=== PATIENT | male | born 1985 | race Caucasian/White ===

== ENCOUNTER → 2018-09-26 15:36 | Outpatient (CLI) | payer OTHER, SELFPAY | PROVIDERS: Visit Provider Student in an Organized Health Care Education/Training Program | DX: N46.01 Organic azoospermia (principal); Z02.82 Encounter for adoption services; N52.9 Male erectile dysfunction, unspecified; Z13.220 Encounter for screening for lipoid disorders ==

== ENCOUNTER → 2018-10-07 12:08 | Outpatient (CLI) | payer OTHER, SELFPAY ==
[2018-10-07 13:00] LABS: BUN Creatinine Ratio 27.5 (6-22); Blood Urea Nitrogen 22 mg/dL (9-20); Calcium 9.2 mg/dL (8.4-10.2); Carbon Dioxide 28 mmol/L (22-32); Chloride 104 mmol/L (98-107); Cholesterol 173 mg/dL (140-199); Estimated Glomerular Filt Rate > 60.0 mL/min (>60); Glucose 93 mg/dL (70-100); HDL Cholesterol 36 mg/dL (40-60); HEMOLYSIS < 15 (0-50); LDL Cholesterol Calculated 106 mg/dL (<100); Potassium 4.2 mmol/L (3.4-5.1); Sodium 140 mmol/L (137-145); Triglycerides 157 mg/dL (35-150)
[2018-10-07 13:44] LABS: Volume Semen 1.5 (1.0-5.0)
[2018-10-07 13:45] LABS: Liquefaction Semen YES (YES); Sperm Count 247 x10^6/mL (20-150); Sperm Morphology 85 %ABNORM (0-30); Sperm Motility 60% % Motile
[2018-10-07 14:54] LABS: Vitamin D 25 Hydroxy (D3) 22.3 ng/mL (30.0-100.0)
[2018-10-10 16:55] LABS: QuantiFERON TB NEGATIVE (Negative)
== END ==
PROVIDERS: PCP Student in an Organized Health Care Education/Training Program; Visit Provider Student in an Organized Health Care Education/Training Program
DX: Z02.82 Encounter for adoption services (principal); N52.9 Male erectile dysfunction, unspecified; N46.01 Organic azoospermia; N46.9 Male infertility, unspecified; Z13.220 Encounter for screening for lipoid disorders; E55.9 Vitamin D deficiency, unspecified
CPT/HCPCS: 36415; 80048; 80061; 82306; 86480; 89320

== ENCOUNTER 2023-10-29 19:06 | Emergency (ER) | payer OTHER, SELFPAY ==
[2023-10-29 19:29] VITALS: BP 132/77; PULSE 70; RESP 16; TEMP 36.3; O2SAT 97; BMI 31.7
--- NOTE | 2023-10-29 20:12 | PC.NURSE ---
Pt states that he was previously seen and treated with Augmentin at clinic, but pain and issues with vision have not improved.
--- NOTE | 2023-10-29 22:02 | ED.EYEPROB ---
HPI - Eye Problem General Chief complaint: Eye Problems Stated complaint: lt eye stye Time Seen by Provider: 10/29/23 22:00 Source: patient Mode of arrival: Ambulatory History of Present Illness HPI Narrative: Patient is a 37-year-old male who wears glasses presenting today with left eye stye. It has been ongoing for the last 6 days. He was seen and evaluated at walk-in clinic where he was given amoxicillin preseptal cellulitis. He reports that he is having increased pain in his eye. He has been using warm compresses but the pain seems to be getting worse. He denies any fever. Does not feel like the eye itself hurts it really feels like the out side. Related Data Previous Rx's Medication Instructions Recorded amoxicillin 875 mg-potassium 1 tab PO BID 7 days #14 tabs 10/27/23 clavulanate 125 mg tablet erythromycin 5 mg/gram (0.5 %) eye 0.5 inch EYE-LEFT Q4HRWA #3.5 grams 10/29/23 ointment Allergies Allergy/AdvReac Type Severity Reaction Status Date / Time No Known Drug Allergies Allergy Unverified 10/27/23 14:50 Patient History Social History Smoking Status: Current every day smoker Smoking Status: Current every day smoker tobacco type: cigarettes alcohol intake frequency: holidays/special occasions only Substance Use Type: marijuana Exam Initial Vital Signs Initial Vital Signs: Vital Signs Temperature 97.4 F L 10/29/23 19:29 Pulse Rate 70 10/29/23 19:29 Respiratory Rate 16 10/29/23 19:29 Blood Pressure 132/77 10/29/23 19:29 Pulse Oximetry 97 10/29/23 19:29 Oxygen Delivery Method Room Air 10/29/23 19:29 GENERAL: Well-appearing, well-nourished and in no acute distress. CARDIOVASCULAR: peripheral pulses in tact, cap refill <2 sec EYE: Large stye noted on left upper lid. Easily quite a bit of pus came out with touching it with a Q-tip RESPIRATORY: No respiratory distress, speaks in full sentences without difficulty EXTREMITIES: Normal range of motion, no clubbing or edema. Neurovascularly intact NEUROLOGICAL: Cranial nerves II through XII grossly intact. Normal gait and speech. SKIN: Warm, dry, no petechiae, no rashes or lesions. Course Orders Ordered: Discontinued Medications Erythromycin (Erythromycin Ophth 1 Gm Oint) 1 applic EYE-LEFT NOW ONE Stop: 10/29/23 22:15 Last Admin: 10/29/23 22:24 Dose: 1 applic Documented By: AB Vital Signs Vital signs: Vital Signs - 8 hr 10/29/23 19:29 Temperature 97.4 F L Pulse Rate 70 Respiratory Rate 16 Blood Pressure 132/77 Pulse Oximetry 97 Oxygen Delivery Method Room Air MDM - Eye Problem MDM Narrative Medical decision making narrative: Patient 37-year-old male presents today with left eye stye. It has been there for about a week he has been using warm compresses. I touched it with a Q-tip and a large amount of pus came out. He is minimal erythema no real concern for preseptal cellulitis certainly no concern for orbital cellulitis. He had almost instant relief with drainage. Will give him some erythromycin ointment. At this time continue supportive care Discharge Plan Departure Patient Disposition: Home Clinical Impression: Hordeolum externum left upper eyelid Instructions: Hordeolum Activity Restrictions/Additional Instructions: *You have been diagnosed with stye left upper lid *What to do: I am glad it started draining you should actually started to feel better. Please continue warm compresses. You can finish the amoxicillin. Also use erythromycin *Continue to take medications as directed Erythromycin every 3-4 hours while awake--> ESSIE *Follow up with your primary care provider in 2-3 days or call [phone] *Return to ER if you should have increasing fever redness swelling pain or any new, worsening or concerning symptoms Prescriptions: New erythromycin 5 mg/gram (0.5 %) ointment 0.5 inch EYE-LEFT Q4HRWA Qty: 3.5 0RF No Action amoxicillin-pot clavulanate 875-125 mg tablet 1 tab PO BID 7 Days Qty: 14 0RF Referrals: Marcial English MD [Primary Care Provider] - Stand Alone Forms: Patient Portal/API
[2023-10-29] MEDS: ERYTHROMYCIN OPHTH 1 GM OINT 1 APPLIC EYE-LEFT (22:24)
== END 2023-10-29 22:28 | disposition home or self-care (01) ==
PROVIDERS: Emergency Provider Emergency Medicine; PCP Student in an Organized Health Care Education/Training Program
DX: H00.014 Hordeolum externum left upper eyelid (principal)
CPT/HCPCS: 99282; 99283

== ENCOUNTER → 2024-02-08 09:46 | Outpatient (CLI) | payer OTHER, SELFPAY ==
[2024-02-08 11:29] LABS: Add Manual Diff / Slide Review NO; Basophils Absolute Auto 0 /uL (0-100); Basophils Percent Auto 0.5 % (0-2); Eosinophils Absolute Auto 100 /uL (0-450); Hematocrit 46.6 % (41-53); Lymphocytes Absolute Auto 2200 /uL (1100-4500); Lymphocytes Percent Auto 30.5 % (25-40); Mean Corpuscular HGB Conc 34.3 % (30-36); Mean Corpuscular Hemoglobin 29.3 PG (26-34); Mean Corpuscular Volume 85.4 fL (80-100); Monocytes Absolute Auto 600 /uL (0-900); Monocytes Percent Auto 8.8 % (3-14); Neutrophils Absolute Auto 4300 /uL (1500-7000); Neutrophils Percent Auto 59.2 % (50-75); Platelet Count 225 X10^3/uL (150-400); Red Blood Cell Count 5.46 X10^6/uL (4.5-5.9); Red Cell Distribution Width 13.6 % (11.6-14.8); White Blood Cell Count 7.3 X10^3/uL (4.5-11.0)
[2024-02-08 17:41] LABS: Alanine Aminotransferase 24 IU/L (<50); Albumin 4.6 g/dL (3.5-5.0); Albumin Globulin Ratio 1.9 (1.0-2.8); Alkaline Phosphatase 47 U/L (38-126); Aspartate Aminotransferase 25 IU/L (17-59); BUN Creatinine Ratio 20.5 (6-22); Bilirubin Total 0.9 mg/dL (0.2-1.3); Blood Urea Nitrogen 18 mg/dL (9-20); Calcium 9.1 mg/dL (8.4-10.2); Carbon Dioxide 28 mmol/L (22-32); Chloride 107 mmol/L (98-107); Cholesterol 184 mg/dL (140-199); Estimated Glomerular Filt Rate > 60 mL/min (>60); Globulin 2.4 g/dL (1.7-4.1); Glucose 86 mg/dL (70-100); HDL Cholesterol 39 mg/dL (40-60); HEMOLYSIS < 15 (0-50); LDL Cholesterol Calculated 122 mg/dL (<100); Sodium 139 mmol/L (137-145); Triglycerides 115 mg/dL (35-150)
== END ==
PROVIDERS: PCP Family Medicine; Referring Provider Family Medicine; Visit Provider Family Medicine
DX: Z00.00 Encounter for general adult medical examination without abnormal findings (principal)
CPT/HCPCS: 36415; 80053; 80061; 85025